=== PATIENT | female | born 1995 | race Hispanic/Latino ===

== ENCOUNTER 2022-12-19 09:57 | Emergency (ER) | payer SELFPAY ==
[2022-12-19 10:04] VITALS: BP 122/74; PULSE 83; RESP 16; TEMP 36.6; O2SAT 100; BMI 27.4
--- NOTE | 2022-12-19 10:41 | ED_ITS ---
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 Patient states she works on a [employer] typically works 18 hours days gets very little sleep averages about 4 hours nightly sometimes less this has been going on for some time. Patient states last year she was working similar hours and ended up having a couple syncopal episodes. She states she was evaluated had lab work, EKG additional workup which was all negative and was told she was just exhausted. Patient states she starting to feel similar. She is not had any syncopal episodes she states she just feels like she needs some rest. She denies headaches, no vision changes no chest pain or shortness of breath, no nausea or vomiting, no diarrhea constipation, no urinary symptoms. Patient denies any new swelling in extremities. She states she is just very tired. Denies surgeries, no daily medications. No known drug allergies. Denies tobacco, denies regular alcohol or illicit. States that she asked off for a day of work to rest but was told she needed a doctor's note. Patient states no chance of . She defers any additional workup here today. States she is not had any more syncopal episodes since last year. Related Data Home Medications Medication Instructions Recorded Confirmed No Known Home Medications 12/19/22 12/19/22 Allergies Allergy/AdvReac Type Severity Reaction Status Date / Time No Known Drug Allergies Allergy Verified 12/19/22 10:06 Review of Systems Review of Systems ROS Unobtainable: All systems reviewed & are unremarkable except as noted in HPI and below Patient History Medical History Healthy adult Social History Smoking Status: Never smoker Smoking Status: Never smoker alcohol intake frequency: 0-2 drinks per day Substance Use Type: does not use Exam Narrative Exam Narrative: GENERAL: Alert and oriented x three, female in mild distress HEENT: Head normocephalic, atraumatic, EOMI, pupils reactive, face symmetric, moist mucous membranes NECK: Supple, full range of motion CARDIOVASCULAR: Regular rate and rhythm without murmurs, rubs or gallops. No swelling bilateral lower extremities. RESPIRATORY: Breath sounds equal bilaterally, no wheezes rales or rhonchi. No tachypnea or accessory muscle use. ABDOMEN: Soft, nontender. Normoactive bowel sounds all 4 quadrants. No guarding or rebound, rigidity, no mass : No CVA tenderness EXTREMITIES: Normal range of motion, no clubbing or edema. Neurovascularly intact NEUROLOGICAL: Cranial nerves II through XII grossly intact. Moving all extr emities. Normal gait. SKIN: Warm, dry, no petechiae, no rashes or lesions. Initial Vital Signs Initial Vital Signs: Vital Signs Temperature 97.8 F 12/19/22 10:04 Pulse Rate 83 12/19/22 10:04 Respiratory Rate 16 12/19/22 10:04 Blood Pressure 122/74 12/19/22 10:04 Pulse Oximetry 100 12/19/22 10:04 Oxygen Delivery Method Room Air 12/19/22 10:04 Course Vital Signs Vital signs: Vital Signs - 8 hr 12/19/22 10:04 Temperature 97.8 F Pulse Rate 83 Respiratory Rate 16 Blood Pressure 122/74 Pulse Oximetry 100 Oxygen Delivery Method Room Air MDM - Recheck/Abnormal Lab/Rx Lab Data Labs: Point of Care Testing Test Results Negative MDM Narrative Medical decision making narrative: This is a 27-year-old female who presents with a request for work note for fatigue and inability to get good sleep secondary to work schedule. Patient politely defers workup, patient did have a urine sample and urine is negative. She denies any other urinary symptoms. Discharge Plan Departure Patient Disposition: Home Clinical Impression: Fatigue Activity Restrictions/Additional Instructions: Please follow-up for recheck if symptoms are persisting. Please return for worsening symptoms passing out, new chest pain, shortness of breath, lightheadedness, new swelling in extremities, nausea or vomiting or other new or concerning symptoms. Prescriptions: No Action No Known Home Medications Stand Alone Forms: Patient Portal/API, Work Release Note
== END 2022-12-19 11:07 | disposition home or self-care (01) ==
PROVIDERS: Emergency Provider Emergency Medicine
DX: R53.83 Other fatigue (principal)
CPT/HCPCS: 81025; 99281